=== PATIENT | male | born 1970 | race Caucasian/White ===

== ENCOUNTER 2020-10-09 13:30 | Observation (INO) ==
[2020-10-09] MEDS ORDERED: Pantoprazole 40 MG VIAL IVP ONE (14:00)
[2020-10-09] MEDS ORDERED: 0.9 % Sodium Chloride 1,000 ML IVC STA (14:06)
[2020-10-09 14:19] LABS: Hemoglobin 9.3 g/dL (12.9-16.9); Immature Granulocytes % 0.4 % (0-4)
[2020-10-09 14:21] LABS: Basophils # 0.1 K/mcL (0.0-0.2); Basophils % 0.4 %; Eosinophils # 0.1 K/mcL (0.0-0.6); Eosinophils % 0.5 %; Immature Platelets 15.3 % (1.1-6.1); Lymphocytes % 18.7 %; Mean Corpuscular HGB Conc 34.4 g/dL (31.6-35.5); Mean Corpuscular Hemoglobin 36.9 pg (28.0-33.3); Mean Corpuscular Volume 107.1 fL (83.0-100.0); Mean Platelet Volume 13.9 fL (9.4-12.4); Monocytes # 1.2 K/mcL (0.0-1.3); Monocytes % 9.3 %; Neutrophils # 9.3 K/mcL (1.6-8.9); Red Blood Count 2.52 M/mcL (4.19-5.50); Segmented Neutrophils % 70.7 %; White Blood Count 13.1 K/mcL (4.3-11.1)
[2020-10-09 14:26] LABS: INR 1.6; Prothrombin Time 18.8 Seconds (9.4-12.1)
[2020-10-09] MEDS ORDERED: cefTRIAXone 1,000 MG in Water for inj. (sterile) 10 ML IVP ONE (14:28)
[2020-10-09 14:29] LABS: Activated Partial Thrombo Time 32.2 Seconds (26.0-36.0)
[2020-10-09 14:46] LABS: Lymphocytes # 2.5 K/mcL (0.6-4.6)
[2020-10-09 14:48] LABS: Platelet Count 79 K/mcL (140-400); Platelet Estimate Decreased (Normal)
[2020-10-09 14:58] LABS: Albumin 2.6 g/dL (3.5-5.7); Albumin/Globulin Ratio 0.9 (1.1-2.2); Bilirubin,Direct 0.9 mg/dL (0.0-0.2); Bilirubin,Indirect 2.5 mg/dL (0.0-1.0); Bilirubin,Total 3.4 mg/dL (0.3-1.0); Globulin 2.8 g/dL (2.4-3.5); Total Protein 5.4 g/dL (6.4-8.9)
[2020-10-09] MEDS ORDERED: Isovue-370 500 ML BOTTLE IVP ONE (15:16)
[2020-10-09 15:41] LABS: BUN/Creatinine Ratio 59 (6-26); Blood Urea Nitrogen 63 mg/dL (6-20); Calcium 8.5 mg/dL (8.6-10.3); Carbon Dioxide 23 mEq/L (23-29); Chloride 103 mEq/L (98-107); Glucose 181 mg/dL (70-105); Osmolality,Calculated 303 (280-300); Sodium 135 mEq/L (136-145); eGFR For African Americans > 60 (> 60); eGFR For Non-African Americans > 60 (> 60)
[2020-10-09] MEDS ORDERED: 0.9 % Sodium Chloride 1,000 ML IVC ONE (15:54)
[2020-10-09] MEDS: Octreotide 400 MCG in 0.9 % Sodium Chloride 100 ML IVC SCH (16:39)
[2020-10-09] MEDS ORDERED: Naloxone 0.4 MG/ML INJ IVP PRN (18:14)
[2020-10-09] MEDS: Ringers Solution, Lactated 1,000 ML IVC SCH (18:48)
[2020-10-09] MEDS: Pantoprazole 40 MG in 0.9 % Sodium Chloride Mini Bag 100 ML IVC SCH (21:09)
[2020-10-10] MEDS: Pantoprazole 40 MG in 0.9 % Sodium Chloride Mini Bag 100 ML IVC SCH ×4 (02:27→18:06)
[2020-10-10] MEDS: Ringers Solution, Lactated 1,000 ML IVC SCH ×2 (02:49→20:26)
[2020-10-10] MEDS: Octreotide 400 MCG in 0.9 % Sodium Chloride 100 ML IVC SCH ×2 (02:51→16:15)
[2020-10-10 07:08] LABS: Red Cell Distribution Width 16.2 % (11.5-14.5)
[2020-10-10 07:10] LABS: Basophils # 0.1 K/mcL (0.0-0.2); Basophils % 0.5 %; Eosinophils # 0.2 K/mcL (0.0-0.6); Eosinophils % 1.9 %; Hematocrit 21.9 % (37.5-50.1); Hemoglobin 7.4 g/dL (12.9-16.9); Immature Granulocytes % 0.3 % (0-4); Immature Platelets 12.6 % (1.1-6.1); Lymphocytes # 3.3 K/mcL (0.6-4.6); Lymphocytes % 29.2 %; Mean Corpuscular HGB Conc 33.8 g/dL (31.6-35.5); Mean Corpuscular Hemoglobin 37.2 pg (28.0-33.3); Mean Corpuscular Volume 110.1 fL (83.0-100.0); Mean Platelet Volume 13.6 fL (9.4-12.4); Monocytes # 1.5 K/mcL (0.0-1.3); Monocytes % 12.8 %; Neutrophils # 6.3 K/mcL (1.6-8.9); Platelet Count 62 K/mcL (140-400); Red Blood Count 1.99 M/mcL (4.19-5.50); Segmented Neutrophils % 55.3 %; White Blood Count 11.3 K/mcL (4.3-11.1)
[2020-10-10 07:24] LABS: BUN/Creatinine Ratio 48 (6-26); Blood Urea Nitrogen 32 mg/dL (6-20); Calcium 7.6 mg/dL (8.6-10.3); Carbon Dioxide 25 mEq/L (23-29); Chloride 109 mEq/L (98-107); Glucose 106 mg/dL (70-105); Osmolality,Calculated 291 (280-300); Sodium 137 mEq/L (136-145); eGFR For African Americans > 60 (> 60); eGFR For Non-African Americans > 60 (> 60)
[2020-10-10] MEDS ORDERED: Dextrose Gel 15 GM/37.5 ML TUBE PO PRN ×2 (08:32)
[2020-10-10] MEDS ORDERED: D5% in Water 1,000 ML IVC PRN (08:32)
[2020-10-10] MEDS ORDERED: *HR* Dextrose 50 % in Water (Vial) 50 ML VIAL IVP PRN (08:32)
[2020-10-10 10:03] LABS: Adenovirus Not Detected (Not Detect); Bordetella Pertussis Not Detected (Not Detect); Chlamydophila pneumoniae Not Detected (Not Detect); Coronavirus 229E Not Detected (Not Detect); Coronavirus HKU1 Not Detected (Not Detect); Coronavirus NL63 Not Detected (Not Detect); Coronavirus OC43 Not Detected (Not Detect); Human Metapneumovirus Not Detected (Not Detect); Human Rhinovirus/Enterovirus Not Detected (Not Detect); Influenza A Subtype 2009 H1 Not Detected (Not Detect); Influenza B Not Detected (Not Detect); Mycoplasma pneumoniae Not Detected (Not Detect); Parainfluenza Virus 1 Not Detected (Not Detect); Parainfluenza Virus 2 Not Detected (Not Detect); Parainfluenza Virus 3 Not Detected (Not Detect); Parainfluenza Virus 4 Not Detected (Not Detect); Respiratory Syncytial Virus Not Detected (Not Detect); SARS-CoV-2 Not Detected (Not Detect)
[2020-10-10] MEDS ORDERED: 0.9 % Sodium Chloride 250 ML ONE (10:21)
[2020-10-10] MEDS ORDERED: *HR* Propofol 200 MG/20 ML VIAL IVP ONE ×2 (12:29→12:33)
[2020-10-10 13:51] LABS: Hematocrit 23.9 % (37.5-50.1); Mean Corpuscular HGB Conc 33.5 g/dL (31.6-35.5); Mean Corpuscular Volume 107.7 fL (83.0-100.0); Mean Platelet Volume 12.5 fL (9.4-12.4); Platelet Count 64 K/mcL (140-400); Red Blood Count 2.22 M/mcL (4.19-5.50); White Blood Count 9.3 K/mcL (4.3-11.1)
[2020-10-10] MEDS: Pantoprazole 40 MG VIAL IVP SCH (18:07)
[2020-10-11] MEDS: Octreotide 400 MCG in 0.9 % Sodium Chloride 100 ML IVC SCH (00:32)
[2020-10-11] MEDS: Pantoprazole 40 MG VIAL IVP SCH (05:18)
[2020-10-11 07:16] LABS: Hepatitis B Surface Antigen Nonreactive (Nonreactive)
[2020-10-11 07:46] LABS: Hepatitis A Antibody IgM Nonreactive (Nonreactive); Hepatitis B Core IgM Nonreactive (Nonreactive); Hepatitis C Virus Antibody Nonreactive (Nonreactive)
[2020-10-11 08:09] VITALS: BP 124/78
[2020-10-11 08:19] LABS: Hematocrit 24.9 % (37.5-50.1); Hemoglobin 8.5 g/dL (12.9-16.9); Mean Corpuscular HGB Conc 34.1 g/dL (31.6-35.5); Mean Corpuscular Hemoglobin 36.8 pg (28.0-33.3); Mean Corpuscular Volume 107.8 fL (83.0-100.0); Mean Platelet Volume 12.7 fL (9.4-12.4); Red Blood Count 2.31 M/mcL (4.19-5.50); Red Cell Distribution Width 17.2 % (11.5-14.5)
[2020-10-11 08:20] LABS: Platelet Count 65 K/mcL (140-400)
[2020-10-11 08:41] LABS: Alanine Aminotransferase 42 Units/L (7-52); Albumin 2.4 g/dL (3.5-5.7); Alkaline Phosphatase 83 Units/L (34-104); Aspartate Amino Transferase 63 Units/L (13-39); BUN/Creatinine Ratio 25 (6-26); Bilirubin,Total 2.9 mg/dL (0.3-1.0); Blood Urea Nitrogen 16 mg/dL (6-20); Calcium 7.4 mg/dL (8.6-10.3); Carbon Dioxide 27 mEq/L (23-29); Chloride 108 mEq/L (98-107); Globulin 2.4 g/dL (2.4-3.5); Glucose 110 mg/dL (70-105); Magnesium 1.9 mg/dL (1.6-2.6); Osmolality,Calculated 286 (280-300); Phosphorous 2.7 mg/dL (2.7-4.5); Potassium 3.6 mEq/L (3.5-5.1); Sodium 137 mEq/L (136-145); Total Protein 4.8 g/dL (6.4-8.9); eGFR For African Americans > 60 (> 60); eGFR For Non-African Americans > 60 (> 60)
[2020-10-11 08:48] LABS: INR 1.8
[2020-10-11] MEDS ORDERED: Thiamine (B-1) 100 MG TABLET PO SCH (09:00)
[2020-10-11] MEDS ORDERED: Multivit/Ca/Min/Fe/FA 1 TAB TABLET PO SCH (09:00)
[2020-10-11] MEDS ORDERED: Folic Acid 1 MG TABLET PO SCH (09:00)
== END 2020-10-11 10:51 | disposition home or self-care (01) ==
LOC: 3ANU 13:30 → EMEROOARM 13:30 → SUATTDRO 17:30 → 3ANU 18:20
PROVIDERS: ADMIT Internal Medicine; ATTEND Internal Medicine